=== PATIENT | female | born 1950 | race Hispanic/Latino ===

== ENCOUNTER 2020-11-18 09:29 | Outpatient (CLI) | payer MEDICARE, OTHER ==
--- NOTE | 2020-11-18 13:42 | Mammography Report ---
DIGITAL SCREENING MAMMOGRAM WITH CAD, 11/18/2020 CLINICAL INFORMATION / INDICATION: Routine screening mammography. SCREENING MAMMO WITH BILATERAL IMPL ANTS Z12.31 TECHNIQUE: Digital bilateral 2D mammography was obtained in the craniocaudal and mediolateral obliqu e projections. This examination was interpreted with the benefit of Computer-Aided Detection analysis . COMPARISON: None 04/08/19, 11/12/18 FINDINGS: Breast Density: The breasts are heterogeneously dense, which may obscure small masses. No dominant mass, suspicious calcifications, or architectural distortion in either breast. Bilateral retropectoral saline implants without change. IMPRESSION: No mammographic evidence of malignancy. Follow up recommendation: Routine yearly BI-RADS Category 2: Benign. A "normal" or negative report should not discourage follow up or biopsy of a clinically significant f inding. A written summary of these findings will be mailed to the patient. The patient will be entered into a mammography reporting system which will generate a reminder letter for the patient's next appointmen t at the appropriate interval. The [employer] recommends yearly mammograms starting at age 40 and continuing as l sherman as a woman is in good health. Breast MRI is recommended for women with an approximate 20-25% or greater lifetime risk of breast cancer, including women with a strong family history of breast or ova klever cancer or who have been treated for Hodgkin's disease. Signer Name: Jose Juan Loera MD Signed: 11/18/2020 1:38 PM Workstation Name: [id number]
== END 2020-11-18 09:30 | disposition home or self-care (01) ==
LOC: SPVWC 09:29
PROVIDERS: ATTEND Surgery
DX: Z12.31 Encounter for screening mammogram for malignant neoplasm of breast (principal)
CPT/HCPCS: 77067